=== PATIENT | male | born 1935 | race Caucasian/White ===

== ENCOUNTER 2018-02-20 05:21 | Day surgery (SDC) | payer MEDICARE ==
[2018-02-15 10:36] VITALS: BP 129/83
[~2018-02-20] VITALS: Ht 182.9 cm; Wt 70.6 kg
[~2018-02-20 05:21] MED LIST: ANTI1CAP PO; CHOL20002 PO; MULT-717 PO; OMEP20TA62 PO
[2018-02-20] MEDS ORDERED: LACTATED RINGERS 1,000 ML IV SCH (06:08)
[2018-02-20] MEDS ORDERED: ASPI-496 PO (06:14)
[2018-02-20] MEDS ORDERED: RABE20TA26 PO (06:14)
[2018-02-20] MEDS ORDERED: TIOT4MIS3 INH (06:14)
[2018-02-20] MEDS ORDERED: LIDOCAINE-MPF 1%, 2ML INFIL ONE (06:30)
[2018-02-20] MEDS ORDERED: FENTANYL PF 100 MCG/2ML ONE (07:17)
[2018-02-20] MEDS ORDERED: PROPOFOL 10 MG/ML, 20ML ONE ×2 (07:25→07:32)
[2018-02-20] MEDS ORDERED: LIDOCAINE 4%, 4 ML SYR/CANN TP ONE (07:25)
[2018-02-20] MEDS ORDERED: SUCCINYLCHOLINE 20 MG/ML, 10ML ONE ×2 (07:25→07:32)
[2018-02-20] MEDS ORDERED: EPINEPHRINE 1 MG/ML, 1ML ONE (07:25)
[2018-02-20] MEDS ORDERED: CEFAZOLIN 1,000 MG ONE (07:32)
[2018-02-20] MEDS ORDERED: ROCURONIUM 10 MG/ML,10ML ONE (07:32)
[2018-02-20] MEDS ORDERED: DEXAMETHASONE 4 MG/ML, 1ML ONE (07:32)
[2018-02-20] MEDS ORDERED: ONDANSETRON 2MG/ML, 2ML ONE (07:32)
[2018-02-20] MEDS ORDERED: NEOSTIGMINE 1 MG/ML, 10ML ONE (07:32)
[2018-02-20] MEDS ORDERED: GLYCOPYRROLATE 0.2MG/1ML, 5ML ONE (07:32)
[2018-02-20] MEDS ORDERED: HYDROcodone/APAP 7.5-325MG/15ML UDC PO PRN (08:00)
[2018-02-20] MEDS ORDERED: OXYcodone 5 MG/5 ML ORAL.SOL UDC PO PRN (08:00)
[2018-02-20] MEDS ORDERED: PROMETHAZINE 25 MG/ML, 1ML IV PRN (08:00)
[2018-02-20] MEDS ORDERED: FENTANYL PF 100 MCG/2ML IV PRN (08:00)
[2018-02-20] MEDS ORDERED: ACETAMINOPHEN 325 MG TABLET PO PRN (08:00)
[2018-02-20] MEDS ORDERED: ONDANSETRON ODT 8 MG PO PRN (08:00)
== END 2018-02-20 11:30 ==
LOC: EDBD → OUT 05:21 → MERGE 05:21 → EDBD 05:21 → OUT 11:30
PROVIDERS: ATTEND Internal Medicine Critical Care Medicine
DX: I89.8 Other specified noninfective disorders of lymphatic vessels and lymph nodes (principal); J44.9 Chronic obstructive pulmonary disease, unspecified
CPT/HCPCS: 31652; 88305; 88341; 88342; J0171; J0330; J0690; J1100; J2405; J2704; J2710; J3010; J3490; J7120; 31625; G0461

== ENCOUNTER → 2018-02-28 | Outpatient (CLI) | payer MEDICARE ==
[~2018-02-28] MED LIST changes: +ASPI-496 PO; +RABE20TA26 PO; +TIOT4MIS3 INH
== END | disposition home or self-care (01) ==
LOC: EDBD → PETCFH 12:26 → MERGE 13:00
PROVIDERS: ATTEND Internal Medicine Critical Care Medicine
DX: R59.0 Localized enlarged lymph nodes (principal); R91.8 Other nonspecific abnormal finding of lung field
CPT/HCPCS: 78815; A9552

== ENCOUNTER 2018-03-19 09:47 | Day surgery (SDC) | payer MEDICARE ==
[2018-03-12 09:07] VITALS: BP 128/81
[~2018-03-19] VITALS: Ht 182.9 cm; Wt 70.9 kg
[2018-03-19] MEDS ORDERED: LACTATED RINGERS 1,000 ML IV SCH (10:20)
[2018-03-19] MEDS ORDERED: PROPOFOL 50 ML ONE (11:16)
[2018-03-19] MEDS ORDERED: ONDANSETRON ODT 8 MG PO PRN (11:30)
[2018-03-19] MEDS ORDERED: METOPROLOL 1 MG/ML, 5ML IV PRN (11:30)
[2018-03-19] MEDS ORDERED: MIDAZOLAM 1 MG/ML, 2ML IV PRN (11:30)
[2018-03-19] MEDS ORDERED: EPHEDRINE 50 MG/ML, 1ML IVPush PRN (11:30)
[2018-03-19] MEDS ORDERED: hydrALAzine 20 MG/ML, 1ML IV PRN (11:30)
[2018-03-19] MEDS ORDERED: ALBUTEROL/IPRATROPIUM 2.5MG/0.5MG, 3 ML NPPB PRN (11:30)
[2018-03-19] MEDS ORDERED: FENTANYL PF 100 MCG/2ML IV PRN (11:30)
== END 2018-03-19 14:00 ==
LOC: OUT 09:47
PROVIDERS: ATTEND Internal Medicine Geriatric Medicine
DX: K31.89 Other diseases of stomach and duodenum (principal); R59.1 Generalized enlarged lymph nodes
CPT/HCPCS: 43242; 88172; 88173; 88177; 88305; 93005; J2704; J7120